=== PATIENT | female | born 1950 | race Caucasian/White ===

== ENCOUNTER 2023-05-02 10:37 | Emergency (ER) | payer MEDICARE, OTHER ==
[2023-05-02] MEDS ORDERED: MORPHINE SULFATE 4 MG INJ IM ONE (11:03)
--- NOTE | 2023-05-02 11:11 | ERPHSYRPT ---
- History of Present Illness Time Seen by Provider: 05/02/23 10:47 Source: patient Exam Limitations: no limitations Physician History: 72 years old female presented to ER with chief complaint of right shoulder pain after she fell from a standing position. Patient reports around midnight she was walking her dog which pulled/jerked her and she fell on the right shoulder. Since then she is having moderate to severe sharp pain with minimal movements and partial relief with being still and holding closer to the chest wall. Did not hit her head. No loss of consciousness. No injury anywhere else. Patient took a fall few days ago and had a laceration right thigh which is repaired. Denies any headache, numbness tingling or focal weakness. Occurred: hours ago (11) Method of Injury: fell Quality: sharpness Severity of Pain-Max: moderate Severity of Pain-Current: moderate Extremities Pain Location: shoulder: right Modifying Factors: Improves With: immobilization. Worsens With: movement Associated Symptoms: none Allergies/Adverse Reactions: No Known Drug Allergies Allergy (Unverified 05/02/23 11:22) - Review of Systems Constitutional: No Symptoms Eyes: No Symptoms, Other (Laceration repair right fibrosed area) Ears, Nose, & Throat: No Symptoms Respiratory: No Symptoms Cardiac: No Symptoms Abdominal/Gastrointestinal: No Symptoms Genitourinary Symptoms: No Symptoms Musculoskeletal: Fall, Injury, Joint Pain Skin: No Symptoms Neurological: No Symptoms Endocrine: No Symptoms - Nursing Vital Signs Nursing Vital Signs: Initial Vital Signs Temperature 98 F 05/02/23 10:52 Pulse Rate 78 05/02/23 10:52 Respiratory Rate 20 05/02/23 10:52 Blood Pressure 152/91 05/02/23 10:52 O2 Sat by Pulse Oximetry 97 05/02/23 10:52 Pain Scale Pain Intensity 10 - Physical Exam General Appearance: no apparent distress, alert Eyes, Ears, Nose, Throat Exam: normal ENT inspection Neck Exam: normal inspection, non-tender, supple, full range of motion Cardiovascular/Respiratory Exam: chest non-tender, normal breath sounds, regular rate/rhythm Abdominal Exam: non-tender, soft, no organomegaly Back Exam: normal inspection, normal range of motion, CVA tenderness Shoulder Exam: normal inspection, bone tenderness (Upper humerus), limited ROM (Right shoulder), pain, soft tissue tenderness Elbow/Forearm Exam: normal inspection, non-tender, no evidence of injury, normal ROM Wrist Exam: normal inspection, non-tender, no evidence of injury, normal ROM Hand Exam: normal inspection, non-tender, no evidence of injury, normal ROM Neuro/Tendon Exam: normal sensation, normal motor functions Mental Status Exam: alert, oriented x 3, cooperative Skin Exam: normal color SpO2 Interpretation: normal SpO2: 96 O2 Delivery: Room Air Ordered Tests: Active Orders 24 hr Category Date Time Status SHOULDER Stat Exams 05/02/23 11:03 Completed Medication Summary Discontinued Medications Generic Name Dose Route Start Last Admin Trade Name Alicia PRN Reason Stop Dose Admin Morphine Sulfate 4 mg 05/02/23 11:03 05/02/23 11:30 Morphine Sulfate 4 Mg/Ml Injection IM 05/02/23 11:04 4 mg STAT ONE Administration Morphine Sulfate Confirm 05/02/23 11:27 Morphine Sulfate 4 Mg/Ml Injection Administered 05/02/23 11:28 Dose 4 mg .ROUTE .[employer]-MED ONE - Progress Progress: improved Progress Note: 05/02/23 11:11 72 years old female presented to ER with chief complaint of right shoulder pain after she fell from a standing position. Patient reports around midnight she was walking her dog which pulled/jerked her and she fell on the right shoulder. Since then she is having moderate to severe sharp pain with minimal movements and partial relief with being still and holding closer to the chest wall. Did not hit her head. No loss of consciousness. No injury anywhere else. Patient took a fall few days ago and had a laceration right thigh which is repaired. Denies any headache, numbness tingling or focal weakness. We will give her pain medication for symptomatic relief and obtain x-rays. No injury anywhere else, clear mechanical fall, do not think needs any other work- up. 05/02/23 13:24 X-rays right shoulder are negative for fracture dislocation. Patient is able to move her shoulder better after pain medications. Will place in sling. Outpatient orthopedics follow-up recommended. I believe patient probably have contusion of right shoulder. She does have tramadol at home which she is advised to continue. Per patient request right eyebrow stitches are removed which were placed almost 10 days ago. No wound dehiscence. Discussed signs symptoms of worsening needing return to ER which she seems understanding. S table for discharge. Counseled pt/family regarding: diagnosis, need for follow-up, rad results - Departure Departure Disposition: Home Clinical Impression: Shoulder contusion Condition: Stable Critical Care Time: No Referrals: DOCTOR,NO FAMILY [Primary Care Provider] - Follow up/PCP as directed [facility] - [facility] [employer] [NON-STAFF PHY W/O PRIVILEGES] - Follow up/PCP as directed (1-2 days for reevaluation) Instructions: Contusion (DC), Preventing Falls in Older Adults Additional Instructions: Take Tylenol/tramadol as needed. Intermittent ice application. Avoid exertion al activities. Follow-up with primary care/orthopedics for reevaluation early next week. Return to ER for any worsening.
[2023-05-02] MEDS ORDERED: MORPHINE SULFATE 4 MG INJ ONE (11:27)
--- NOTE | 2023-05-02 13:09 | XRAY ---
CLINICAL HISTORY:History of fall. COMPARISON:None. TECHNIQUES:X-ray of the shoulder, AP/external and internal rotation 3 views. FINDINGS: No evidence of fracture or dislocation was noted. Reduced bone density was seen. Mild degenerative changes at the acromioclavicular joint with downward sloping of the acromion partially encroaching upon the subacromial tunnel. Right lower lung lobe dense nodule is seen. IMPRESSION: 1. No acute fracture or dislocation. 2. Mild degenerative changes at the acromioclavicular joint with downward sloping of the acromion. 3. Right lower lung lobe nodule, clinical correlation, and follow-up by the dedicated study are recommended. DISCLAIMER: A subtle bone abnormality or fracture may not be readily apparent on x-rays, thus clinical correlation and further imaging including follow up CT, MRI, or follow up x-rays are advised as needed. Electronically Signed by: Lance Daniels MD. ( 05/02/2023 12:05:43 [employer])
[2023-05-02 13:55] VITALS: BP 123/69; PULSE 78; O2SAT 99
== END 2023-05-02 13:56 | disposition home or self-care (01) ==
LOC: ED 10:37
DX: S40.011A Contusion of right shoulder, initial encounter (principal); W18.39XA Other fall on same level, initial encounter; Y93.K1 Activity, walking an animal; Z79.891 Long term (current) use of opiate analgesic
CPT/HCPCS: 73030; 96372; 99283; J2270